=== PATIENT | female | born 1945 | race Caucasian/White ===

== ENCOUNTER → 2016-10-09 | Outpatient (CLI) | payer MEDICARE, OTHER | END | disposition home or self-care (01) | LOC: GMAB 10:50 | PROVIDERS: ATTEND Family Medicine | DX: E03.9 Hypothyroidism, unspecified (principal); D50.9 Iron deficiency anemia, unspecified ==

== ENCOUNTER → 2016-11-06 | Outpatient (CLI) | payer MEDICARE, OTHER | END | disposition home or self-care (01) | LOC: GMAB 16:11 | PROVIDERS: ATTEND Family Medicine | DX: M10.09 Idiopathic gout, multiple sites (principal) ==

== ENCOUNTER 2017-08-17 01:06 | Emergency (ER) | payer MEDICARE, OTHER ==
--- NOTE | 2017-08-17 01:18 | ED.PDOC ---
History of Present Illness - General Chief Complaint: GI Problem Stated Complaint: vomiting Time Seen by Provider: 08/17/17 01:10 Source: patient Exam Limitations: no limitations - History of Present Illness Initial Comments: Danay Lafleur 72 y/o female came to [facility] with nausea/vomiting for the last 3-4 days unable to take anything down;No diarrhea,fever ,chills.Had bowel movement .Tried eating crackers and water able to take it but several hours later threw it back up. Penny ate cheese but again vomited.Also has some discomfort LUQ but denies pain. Timing/Duration: constant - 4 days, getting worse, other Severity: moderate Improving Factors: nothing Worsening Factors: eating Associated Symptoms: nausea/vomiting Allergies/Adverse Reactions: Allergies Sulfa Drugs Allergy (Verified 11/04/14 19:49) Home Medications: Ambulatory Orders Rosuvastatin Calcium [Crestor] 10 mg PO DAILY 11/04/14 Thyroid [[place]ner Thyroid] 90 mg PO DAILY 11/04/14 Valsartan-Hydrochlorothiazide [Diovan Hct 320-25 mg] 1 tab PO DAILY 11/04/14 Bystolic 08/17/17 Metoclopramide Tab [Reglan Tab] 5 mg PO TID #30 tab 08/17/17 Nitrofurantoin Monohydrate Mac [Macrobid] 100 mg PO BID #10 cap 08/17/17 Ranitidine HCl 150 mg PO BID #30 tab 08/17/17 Review of Systems - Review of Systems Constitutional: States: no symptoms reported EENTM: States: no symptoms reported Respiratory: States: no symptoms reported Gastrointestinal/Abdominal: States: abdominal pain Genitourinary: States: no symptoms reported Musculoskeletal: States: no symptoms reported Skin: States: no symptoms reported Neurological: States: no symptoms reported All other Systems: Reviewed and Negative, No Change from Baseline Past Medical History (General) - Patient Medical History Hx Seizures: No Hx Stroke: No Hx Dementia: No Hx Asthma: No Hx of COPD: No Hx Cardiac Disorders: Yes Hx Congestive Heart Failure: No Hx Pacemaker: No Hx Hypertension: Yes Hx Thyroid Disease: Yes Hx Diabetes: No Hx Gastroesophageal Reflux: No Hx Renal Disease: No Hx Cancer: No Hx of HIV: No Hx Hepatitis C: No Hx MRSA: No Surgical History: other - colon resection diverticulitis developed colonic- vesiculo fistula,hysterectomy,CTS,colonoscopy - Vaccination History Hx Influenza Vaccination: Yes - Social History Hx Tobacco Use: Yes - social smoker in college yrs ago Hx Alcohol Use: No Hx Substance Use: No Hx Substance Use Treatment: No Hx Depression: No Hx Physical Abuse: No Hx Emotional Abuse: No Hx Suspected Abuse: No - Activities of Daily Living Patient Lives Alone: No - lives with family Family Medical History - Family History Mother Family History: No Known Living Status: Hx Family Hypertension: Yes - mom Hx Family Diabetes: Yes - mom Hx Family;Other: COPD-dad Physical Exam - Physical Exam General Appearance: Alert, No apparent distress Eye Exam: bilateral normal Ears, Nose, Throat: hearing grossly normal, normal ENT inspection, normal pharynx Neck: non-tender, full range of motion, supple Respiratory: chest non-tender, lungs clear, normal breath sounds Cardiovascular/Chest: normal peripheral pulses, regular rate, rhythm, no murmur Peripheral Pulses: radial,right: 2+, radial,left: 2+ Gastrointestinal/Abdominal: soft, no organomegaly, tenderness - LUQ no peritoneal signs Back Exam: no CVA tenderness, no vertebral tenderness Extremity: no pedal edema, no calf tenderness Neurologic: alert, normal mood/affect, oriented x 3 Skin Exam: normal color, warm/dry Progress - Progress Progress: 08/17/17 02:06 Last Vital Signs Temp 96.5 F L 08/17/17 01:16 Pulse 82 08/17/17 01:16 Resp 18 08/17/17 01:16 BP 173/94 08/17/17 01:16 Pulse Ox 98 08/17/17 01:16 - Results/Orders Results/Orders: Laboratory Tests 08/17/17 08/17/17 01:30 01:35 WBC 7.6 RBC 4.63 Hgb 13.7 Hct 40.1 MCV 86.6 MCH 29.6 MCHC 34.2 RDW 12.5 Plt Count 264 MPV 7.4 Absolute Neuts (auto) 5.80 Absolute Lymphs (auto) 1.10 Absolute Monos (auto) 0.50 Absolute Eos (auto) 0.10 Absolute Basos (auto) 0.00 Neutrophils % 76.9 Lymphocytes % 14.9 L Monocytes % 7.2 Eosinophils % 0.9 L Basophils % 0.1 PT 12.1 INR 1.070 PTT (SP) 29.7 Sodium 135 Potassium 3.3 L Chloride 100 L Carbon Dioxide 23 Anion Gap 15.3 BUN 13 Creatinine 0.55 L BUN/Creatinine Ratio 23.6 H Random Glucose 122 H Serum Osmolality 271.5 L Calcium 9.6 Magnesium 1.8 Total Bilirubin 1.0 Direct Bilirubin 0.2 Indirect Bilirubin 0.8 AST 18 ALT 12 Alkaline Phosphatase 67 Creatine Kinase 67 CK-MB (CK-2) 0.7 CK-MB (CK-2) % Not Reportable Troponin I < 0.02 Serum Total Protein 7.1 Albumin 4.1 Lipase 18 L Urine Color Yellow Urine Appearance Clear Urine pH 6.0 Ur Specific Olds 1.015 Urine Protein Negative Urine Glucose (UA) Negative Urine Ketones Negative Urine Blood Negative Urine Nitrite Negative Urine Bilirubin Negative Urine Urobilinogen 0.2 Ur Leukocyte Esterase Small H Urine RBC 0 Urine WBC 5-10 H Ur Epithelial Cells 1-3 Amorphous Sediment 1+ Urine Bacteria 2+ H No vomiting noted or nausea while in emergency room - EKG/XRAY/CT EKG: Sinus, nonspecific ST T wave Chg - anteroseptal leads Comments: Heart rate-70 XRAY: chest - no acute abnormalities CT Ordered: Yes - abd pelvis-no acute abnormalities Departure - Departure Clinical Impression: Vomiting Qualifiers: Vomiting type: unspecified Vomiting Intractability: unspecified Nausea presence : with nausea Qualified Code(s): R11.2 - Nausea with vomiting, unspecified Urinary tract infection Qualifiers: Urinary tract infection type: site unspecified Hematuria presence: without hematuria Qualified Code(s): N39.0 - Urinary tract infection, site not specified Time of Disposition: 03:25 Disposition: Discharge to Home or Self Care Condition: Fair Departure Forms: ED Discharge - Pt. Copy, Patient Portal Self Enrollment Instructions: DI for Vomiting -- Adult Diet: other - AVOID GREASY,SPICY,DAIRY FOODS UNTIL BETTER Referrals: Toney Nur MD [Primary Care Provider] - 1-2 Weeks Prescriptions: Metoclopramide Tab [Reglan Tab] 5 mg PO TID #30 tab Nitrofurantoin Monohydrate Mac [Macrobid] 100 mg PO BID #10 cap RX: Ranitidine HCl 150 mg PO BID #30 tab Home Medications: Ambulatory Orders Rosuvastatin Calcium [Crestor] 10 mg PO DAILY 11/04/14 Thyroid [[place]ardner Thyroid] 90 mg PO DAILY 11/04/14 Valsartan-Hydrochlorothiazide [Diovan Hct 320-25 mg] 1 tab PO DAILY 11/04/14 Bystolic 08/17/17 Metoclopramide Tab [Reglan Tab] 5 mg PO TID #30 tab 08/17/17 Nitrofurantoin Monohydrate Mac [Macrobid] 100 mg PO BID #10 cap 08/17/17 Ranitidine HCl 150 mg PO BID #30 tab 08/17/17 Additional Instructions: Follow up with primary Md in AM 08/17/2017
[2017-08-17] MEDS ORDERED: SODIUM CHLORIDE 0.9% 500ML 500 ML IVS ONE (01:31)
[2017-08-17] MEDS ORDERED: ONDANSETRON INJ 4 MG/2 ML VIAL IV ONE (01:31)
[2017-08-17] MEDS ORDERED: SODIUM CHLORIDE 0.9% 1000ML 1,000 ML ONE (01:40)
--- NOTE | 2017-08-17 02:57 | RAD ---
Procedure: XR CHEST 1 VIEW Exam Date: 08/17/2017 Ordering Provider: Tuan Meza Clinical Indication: vomiting Comparison: None Findings: Cardiomediastinal silhouette: Unremarkable Pulmonary vasculature : Unremarkable Aortic contour: Aortic calcification Focal lung consolidation: None Pleural effusion: None Pneumothorax: None Bones and soft tissues: Nonacute Impression: 1. No acute abnormalities in the chest. 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
--- NOTE | 2017-08-17 03:07 | CT ---
EXAM DESCRIPTION: CT ABDOMEN AND PELVIS WITH CONTRAST CLINICAL HISTORY: vomiting COMPARISON: 11/04/2014 TECHNIQUE: CT of the abdomen and pelvis are performed during IV bolus administration of iodinated contrast. DLP: 800.88 mGycm FINDINGS: Abdomen: The liver has normal size and density. No intrahepatic mass or biliary dilatation. No calcified gallstones. The spleen, pancreas, and adrenal glands are unremarkable. The kidneys have normal size and contour without evidence of solid mass or hydronephrosis. Aortoiliac atherosclerosis. The portal vein patent. The proximal visceral and renal arteries are patent. No free intraperitoneal air. The stomach and duodenum have normal course. Pelvis: Prior hysterectomy. Urinary bladder is unremarkable. No free pelvic fluid or lymphadenopathy. Scattered diverticula colon without pericolic fat stranding. Normal appendix. The visualized lung bases demonstrate minimal dependent atelectasis or scarring.. No destructive bone lesions identified. Degenerative spondylosis of the visualized thoracic and lumbar spine. IMPRESSION: 1. No acute inflammatory or obstructive abnormality identified. 2. Diverticulosis without evidence of diverticulitis. This exam was performed according to our departmental dose-optimization program, which includes automated exposure control, adjustment of the mA and/or kV according to patient size and/or use of iterative reconstruction technique. Electronically signed by: Yimi Simon 08/17/2017 3:06 AM [employer] SUPERINTENDENT
[2017-08-17] MEDS ORDERED: PANTOPRAZOLE SODIUM IV 40 MG VIAL IV ONE (03:22)
[2017-08-17] MEDS ORDERED: cefTRIAXone SODIUM 1 GM in SODIUM CHL 0.9% 50ML MIN-BAG+ 50 ML IVPB SCH (03:30)
[2017-08-17] MEDS ORDERED: SODIUM CHL 0.9% 50ML MIN-BAG+ 50 ML IVPB ONE (03:30)
[2017-08-17] MEDS ORDERED: cefTRIAXone SODIUM 1 GM VIAL ONE (03:30)
[2017-08-17 04:30] VITALS: BP 164/73; TEMP 96.8; O2SAT 95
== END 2017-08-17 04:34 | disposition home or self-care (01) ==
LOC: ER 01:06
DX: N39.0 Urinary tract infection, site not specified (principal); R11.2 Nausea with vomiting, unspecified; I10 Essential (primary) hypertension; E07.9 Disorder of thyroid, unspecified; Z87.891 Personal history of nicotine dependence
CPT/HCPCS: 36415; 71045; 74177; 80048; 80076; 81001; 82550; 82553; 83690; 84484; 85025; 85610; 85730; 87086; 93005; J0696; J2405; J7030; J7050

== ENCOUNTER → 2017-08-20 | Outpatient (CLI) | payer MEDICARE, OTHER | END | disposition home or self-care (01) | LOC: NM 09:30 | PROVIDERS: ATTEND Family Medicine | DX: R10.13 Epigastric pain (principal) | CPT/HCPCS: 78226; A9537 ==

== ENCOUNTER → 2017-08-26 | Outpatient (CLI) | payer MEDICARE, OTHER ==
--- NOTE | 2017-08-26 13:42 | US ---
EXAM DESCRIPTION: Carotid Duplex: ULTRASOUND. CLINICAL HISTORY: OCCLUSION AND STENOSIS OF BILATERAL CAROTID ARTERIES COMPARISON: None. TECHNIQUE: Transcutaneous scanning utilizing 2-dimensional and Doppler modes to evaluate the bilateral carotid systems and vertebral arteries. Percentage of diameter of stenosis or no stenosis recorded will be based upon NASCET criteria. FINDINGS: Peak systolic/end diastolic (CM-Sec) CCA Right 121/19 Left 213/68. ICA Right proximal 87/18, distal 91/27. Left proximal 180/61, mid 213/68. Vertebral Right 56/17 Left 57/13. ECA (PS Only) Right 87 left 98. ICA/CCA peak systolic ratio: Right 0.7 Left 1.9 ICA/CCA end diastolic ratio: Right 1.4 Left 2.9 Vertebral arteries: antegrade flow. Comments: Atherosclerotic calcification in the bilateral common carotid bulbs and proximal ICAs. Spectral broadening in the bilateral proximal ICAs. Color turbulent flow in the proximal left ICA. Color turbulent flow in the distal right ICA. Area stenosis left proximal ICA 82%; diameter stenosis 74%. Left common carotid bulb area stenosis 19%; diameter stenosis 31%. Right proximal ICA area stenosis 12 %. Diameter stenosis 22%.. IMPRESSION: 1. Doppler evaluation of the bilateral carotid systems and vertebral arteries shows critical stenosis greater than 70%, in the proximal left ICA. This stenosis is also seen on 2-D imaging by area and diameter measurements. This can be confirmed with MRA or CTA with IV contrast if clinically indicated. 2. Significant amount of plaque seen in the left common carotid bifurcation and proximal ICA. . Bilateral vertebral arteries showed antegrade-cephalad flow. CRITICAL COMMUNICATION: The critical value was discussed directly by phone with Dr. Cl Nur at approximately 1335 hours, on August 26, 2017. Electronically signed by: Dino Lackey MD 08/26/2017 1:41 PM [facility]
== END ==
LOC: US 09:27
PROVIDERS: ATTEND Family Medicine
DX: I65.23 Occlusion and stenosis of bilateral carotid arteries (principal)

== ENCOUNTER → 2017-09-01 | Outpatient (CLI) | payer MEDICARE, OTHER ==
--- NOTE | 2017-09-01 14:58 | CT ---
EXAM DESCRIPTION: CTA Head: Computed tomographic angiography. CLINICAL HISTORY: BILATERAL CAROTID ARTERY STENOSIS COMPARISON: CTA of the neck on the same visit. TECHNIQUE: Spiral -axial scans through the head and brain at 2.5 mm intervals, with nonionic IV contrast. Coronal and sagittal 2.0 mm reconstructions. Volume rendering 3-D reconstruction "pivot and tumble" images. No adverse reactions. Total Exam DLP: 494.77 mGy-cm. This exam was performed according to our departmental CT dose-optimization program which includes automated exposure control, adjustment of the mA and/or kV according to patient size and/or use of iterative reconstruction technique; to reduce radiation dose to as low as reasonably achievable (ALARA). FINDINGS: No abnormalities in the intracranial ICAs. Bilateral origination of the posterior cerebral arteries from the ICAs. Anterior communicating arteries. There is also a contribution to the left superior cerebellar artery from the intracranial left ICA. Proximal anterior and middle cerebral arteries are unremarkable with patent anterior communicating artery. No aneurysms, stenoses, vasculitis, or mass effect. Minimal atherosclerotic calcification in the carotid siphon. Bilateral distal vertebral arteries are codominant and join to form the basilar artery. Plaque arteries originating from the bilateral distal vertebral arteries. AICA vessels originating from the proximal basilar artery. Superior cerebellar arteries originating from the distal basilar artery. Also a rudimentary branch from the distal basilar artery to the right posterior cerebral artery. No aneurysms, no stenoses, no mass effect and no vasculitis. No mass-effect and no midline shift. Normal contrast enhancement. Vascular calcifications anterior; physiologic calcifications in the pineal gland and choroid plexus. No effacement or displacement of the ventricles, CSF spaces, or subdural spaces. Normal contrast enhancement. No extra axial fluid collection. No Gross abnormalities of the bony calvarium. IMPRESSION: 1. Anatomic variations in the anterior and posterior circulations seen on CTA of the head. 2. No aneurysms or stenoses. No vasculitis or mass effect. 3. No midline shift of the brain. Normal enhancement of the brain parenchyma. CSF spaces are unremarkable. 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
--- NOTE | 2017-09-01 15:28 | CT ---
EXAM DESCRIPTION: CTA Neck: Computed Tomography. CLINICAL HISTORY: BILATERAL CAROTID ARTERY STENOSIS COMPARISON: CTA head on the same visit. TECHNIQUE: Spiral, axial 1.25 mm scans through the neck soft tissues after bolus infusion of IV contrast. 3-D MIP coronal and sagittal 2.0 mm reconstructions. 3D volume rendering images rotation display . Percentage of stenosis or no stenosis recorded will be based upon NASCET criteria. Total Exam DLP: 494.77 mGy-cm. This exam was performed according to our departmental CT dose-optimization program which includes automated exposure control, adjustment of the mA and/or kV according to patient size and/or use of iterative reconstruction technique; to reduce radiation dose to as low as reasonably achievable (ALARA). FINDINGS: Standard origin aeration of the left common carotid artery from the aortic arch with minimal atherosclerosis. Calcification at the bifurcation. Partially calcified plaque on the internal wall of the proximal ICA resulting in 64% diameter stenosis. Proximal left ECA is unremarkable.. The remainder of the ICA shows no significant narrowing stenosis to the skull base. Usual origination of the right common carotid artery from the bifurcation of the right innominate artery. Minimal atherosclerotic calcification of the proximal right ICA with noncalcified plaque as well. Less than 10% diameter stenosis. Remainder of the right ICA is unremarkable through the skull base. No significant lesions in the proximal right ECA. No aneurysms or mass effect in the vessels. Typical origination of the bilateral vertebral arteries from the subclavian arteries. Calcification in the ostia of the right vertebral artery. No significant calcification or narrowing proximal, within the intervertebral foramen or from the C1 foramina to the foramen magnum. No aneurysms, stenoses, or mass effect. Diffuse spondylosis in the cervical spine from C2-3 down to T1-2. Most severe at C5-6. Foraminal narrowing due to uncinate spurs. Dextroscoliosis. Minimal mosaic densities in the bilateral included lung downs. No pneumothorax or abnormal nodules. Heterogeneous enhancement of the thyroid gland. Scattered lymph nodes from the neck base to the base of the skull. Short axis measurements are within the normal range. No significant effacement or displacement of the airway. IMPRESSION: 1. 64% diameter stenosis of the proximal left ICA by partially calcified plaque. No aneurysm or mass effect in the carotid vessels. Small diameter narrowing of the proximal right ICA. Vertebral arteries bilaterally are unremarkable. 2. Diffuse spondylosis of the cervical spine most severe at C5-6. Facet arthrosis and foraminal narrowing by uncinate spurs. 3. Probably age-related changes in the included lung downs. 4. No soft tissue neck masses. Electronically signed by: Dino Lackey MD 09/01/2017 3:27 PM [facility]
== END ==
LOC: CT 09:00
DX: I65.23 Occlusion and stenosis of bilateral carotid arteries (principal); M47.892 Other spondylosis, cervical region

== ENCOUNTER → 2018-07-07 | Outpatient (CLI) | payer MEDICARE, OTHER ==
--- NOTE | 2018-07-08 06:14 | US ---
Procedure: US CAROTID DOPPLER BILATERAL Exam Date: 07/07/2018 Ordering Provider: EUGENE GUERRA Clinical Indication: CAROTID STENOSIS Comparison: 08/26/2017 TECHNIQUE : Real-time cerebrovascular ultrasonography was obtained from sternal notch to the angle of the mandible bilaterally utilizing oswald scale, color flow and spectral Doppler analysis. Systolic velocity ratios were calculated for internal carotid artery to common carotid artery bilaterally. FINDINGS: RIGHT CAROTID BIFURCATION: Mild atherosclerotic plaque. Peak systolic and end-diastolic velocities in the right internal carotid artery are 107 and 32 cm/s. Internal carotid/common carotid ratio is 1.0. Right vertebral flow is antegrade. LEFT CAROTID BIFURCATION: Mild atherosclerotic plaque. Peak systolic and end-diastolic velocities in the left internal carotid artery are 124 and 43 cm/s. Internal carotid/common carotid ratio is 1.2. Left vertebral flow is antegrade. IMPRESSION: 1. Mild atherosclerotic plaque in each carotid bulb and ICA origin. 2. There is no significant stenosis (less than 50%) at either ICA origin. 3. Bilateral antegrade vertebral artery flow. Electronically signed by: Beka Gimenez MD 07/08/2018 6:12 AM [facility]
== END ==
LOC: US 11:07
DX: I65.23 Occlusion and stenosis of bilateral carotid arteries (principal)

== ENCOUNTER 2018-10-11 17:04 | Emergency (ER) | payer MEDICARE, OTHER ==
--- NOTE | 2018-10-11 17:34 | RAD ---
EXAM DESCRIPTION: Shoulder,Left 2 or More Views CLINICAL HISTORY: Left shoulder injury x one week ago COMPARISON: None. TECHNIQUE: 2 views left FINDINGS: Degenerative changes are observed in the acromioclavicular joint. Mild glenohumeral joint degenerative changes are observed. No fracturing is detected. IMPRESSION: Degenerative changes are observed in the acromio clavicular and glenohumeral joints. Electronically signed by: Armin Guerrero MD 10/11/2018 5:31 PM CDT
[2018-10-11] MEDS ORDERED: traMADol 37.5MG/APAP 325MG 1 EA TAB PO ONE (17:43)
--- NOTE | 2018-10-11 18:10 | ED.PDOC ---
History of Present Illness - General Chief Complaint: Upper Extremity Injury Stated Complaint: left shoulder injury, x1 week ago. Time Seen by Provider: 10/11/18 17:21 Source: patient Exam Limitations: no limitations - History of Present Illness Initial Comments: PT PRESENTS WITH 1 WEEK HISTORY OF L SHOULDER PAIN. PT CAN NOT RECALL ANY SPECIFIC INJURY, HOWEVER STATES SHE HAS BEEN LIFTING HEAVY BOXES BECAUSE SHE IS MOVING. Occurred: last week Pain - Upper Extremity: moderate: Shoulder, left Method of Injury: unknown Improving Factors: immobilization Worsening Factors: movement Allergies/Adverse Reactions: Allergies Sulfa Drugs Allergy (Verified 11/04/14 19:49) Home Medications: Ambulatory Orders Rosuvastatin Calcium [Crestor] 10 mg PO DAILY 11/04/14 Thyroid [[place] Thyroid] 90 mg PO DAILY 11/04/14 Valsartan-Hydrochlorothiazide [Diovan Hct 320-25 mg] 1 tab PO DAILY 11/04/14 Bystolic 08/17/17 Metoclopramide Tab [Reglan Tab] 5 mg PO TID #30 tab 08/17/17 Nitrofurantoin Monohydrate Mac [Macrobid] 100 mg PO BID #10 cap 08/17/17 Ranitidine HCl 150 mg PO BID #30 tab 08/17/17 Tramadol-Acetaminophen [Ultracet] 1 - 2 tab PO Q6HR PRN #30 tab 10/11/18 Review of Systems - Review of Systems Constitutional: Denies: fever Respiratory: Denies: cough, short of breath Cardiology: Denies: chest pain, palpitations Musculoskeletal: States: joint pain. Denies: joint swelling Past Medical History (General) - Patient Medical History Hx Seizures: No Hx Stroke: No Hx Dementia: No Hx Asthma: No Hx of COPD: No Hx Cardiac Disorders: No Hx Congestive Heart Failure: No Hx Pacemaker: No Hx Hypertension: Yes Hx Thyroid Disease: Yes Hx Diabetes: No Hx Gastroesophageal Reflux: Yes - HX gastric ulcers Hx Renal Disease: No Hx Cancer: No Hx of HIV: No Hx Hepatitis C: No Hx MRSA: No Surgical History: other - Vaccination History Hx Tetanus, Diphtheria Vaccination: Yes Hx Influenza Vaccination: No Hx Pneumococcal Vaccination: Yes - Social History Hx Tobacco Use: No Hx Alcohol Use: Yes - former Hx Substance Use: No Hx Substance Use Treatment: No Hx Depression: No Hx Physical Abuse: No Hx Emotional Abuse: No Hx Suspected Abuse: No - Female History Patient is a Female of Child Bearing Age (10 -59 yrs old): No Family Medical History - Family History Mother Family History: No Known Living Status: Hx Family Hypertension: Yes - mom Hx Family Diabetes: Yes - mom Hx Family;Other: COPD-dad Physical Exam - Physical Exam General Appearance: Alert, No apparent distress, Well Developed, Well Groomed, Well Hydrated Eyes, Ears, Nose, Throat Exam: normal ENT inspection Neck: full range of motion, supple Cardiovascular/Respiratory: no respiratory distress Back Exam: normal inspection, no vertebral tenderness Shoulder Exam: normal inspection, no evidence of injury, normal ROM, bone tenderness, soft tissue tenderness Elbow/Forearm Exam: normal inspection, non-tender, no evidence of injury, normal ROM Wrist Exam: normal inspection, non-tender, no evidence of injury, normal ROM Hand Exam: normal inspection, non-tender, no evidence of injury, normal ROM Neuro/Tendon: normal sensation, normal motor functions, normal tendon functions Mental Status: alert, oriented x 3 Skin Exam: normal color, warm/dry Progress - EKG/XRAY/CT XRAY: SHOULDER, NO ACUTE INJURY Departure - Departure Clinical Impression: Sprain and strain of shoulder and upper arm Time of Disposition: 18:07 Disposition: Discharge to Home or Self Care Condition: Good Departure Forms: ED Discharge - Pt. Copy, Patient Portal Self Enrollment Instructions: DI for Arm Pain, Shoulder Sprain (DC) Activity: no lifting, no pushing/pulling with affected limb Referrals: SARAH BHATT MD [Primary Care Provider] - 1-5 Days Timo Fraser MD [Active Staff] - 1-5 Days Prescriptions: Tramadol-Acetaminophen [Ultracet] 1 - 2 tab PO Q6HR PRN #30 tab PRN Reason: Pain Home Medications: Ambulatory Orders Rosuvastatin Calcium [Crestor] 10 mg PO DAILY 11/04/14 Thyroid [[place] Thyroid] 90 mg PO DAILY 11/04/14 Valsartan-Hydrochlorothiazide [Diovan Hct 320-25 mg] 1 tab PO DAILY 11/04/14 Bystolic 08/17/17 Metoclopramide Tab [Reglan Tab] 5 mg PO TID #30 tab 08/17/17 Nitrofurantoin Monohydrate Mac [Macrobid] 100 mg PO BID #10 cap 08/17/17 Ranitidine HCl 150 mg PO BID #30 tab 08/17/17 Tramadol-Acetaminophen [Ultracet] 1 - 2 tab PO Q6HR PRN #30 tab 10/11/18
[2018-10-11 18:26] VITALS: BP 177/103; TEMP 97; O2SAT 99
== END 2018-10-11 18:26 | disposition home or self-care (01) ==
LOC: ER 17:04
DX: S43.402A Unspecified sprain of left shoulder joint, initial encounter (principal); I10 Essential (primary) hypertension; E07.9 Disorder of thyroid, unspecified; Z88.2 Allergy status to sulfonamides; Z79.899 Other long term (current) drug therapy; X50.0XXA Overexertion from strenuous movement or load, initial encounter; Y92.9 Unspecified place or not applicable

== ENCOUNTER → 2018-10-14 | Outpatient (CLI) | payer MEDICARE, OTHER | LOC: GMAE 10:43 | PROVIDERS: ATTEND Family Medicine | DX: E03.9 Hypothyroidism, unspecified (principal) ==

== ENCOUNTER → 2019-07-21 | Outpatient (CLI) | payer MEDICARE, OTHER ==
--- NOTE | 2019-07-23 13:01 | RAD ---
EXAM DESCRIPTION: Pelvis: CR/DR/XR CLINICAL HISTORY: PAIN IN LEFT HIP COMPARISON: None Available. TECHNIQUE: One view AP Pelvis FINDINGS: No fracture dislocation. Millimeter decreased bone density. Narrowing of the superior right hip joint more than the left. Inferior marginal hypertrophic changes of both hip joints and minimal hypertrophy of the superior lateral acetabula bilaterally. Bilateral enthesophytes on the iliac crests and ischial tuberosities. Marginal spurs on the SI joints and the pubic symphysis. No fracture. No abnormal radiodense objects in the soft tissues or joint spaces. IMPRESSION: No fracture pelvis or dislocation of the hip joints. Overall bone density is mild to moderately decreased. Narrowing of the superior right joint compared to the left. Marginal spurs and enthesophytes. Evaluation for fracture is limited given the degree of bone density loss. If high clinical concern for acute fracture, correlation with MRI recommended given its greater sensitivity in the patient with significant bone density loss. If the patient cannot tolerate MRI imaging or more urgent imaging is required, CT could be performed, however it is less sensitive in the patient with severe bone density loss, when compared to MRI. Electronically signed by: Dino Lackey MD 07/23/2019 12:59 PM [facility]
--- NOTE | 2019-07-28 07:14 | RAD ---
EXAM DESCRIPTION: Knee,Right Complete CLINICAL HISTORY: 74 years Female, pain in right hip COMPARISON: July 21, 2019 FINDINGS: Four views of the right knee show a small right knee joint effusion. No acute fracture or malalignment. Advanced degenerative changes in the lateral and patellofemoral compartments including severe joint space narrowing and osteophyte formation. Less advanced degenerative changes in the medial compartment. Vascular calcifications. Additional benign soft tissue calcification posterior to the right knee, nonspecific. IMPRESSION: Tricompartmental degenerative changes, worse in the lateral and patellofemoral compartments. Small right knee joint effusion. Electronically signed by: Justin Carrillo MD 07/28/2019 7:13 AM [facility]
--- NOTE | 2019-07-28 07:44 | RAD ---
EXAM DESCRIPTION: Knee,Left Complete CLINICAL HISTORY: 74 years Female, PAIN IN LEFT KNEE COMPARISON: None. FINDINGS: Four views of the left knee show no acute fracture or malalignment. Small left knee joint effusion. Advanced lateral and patellofemoral joint space narrowing with osteophytes in all three knee joint compartments. Vascular calcifications. IMPRESSION: Tricompartmental degenerative changes, worse in the lateral and patellofemoral compartments. Left knee joint effusion. Electronically signed by: Justin Carrillo MD 07/28/2019 7:43 AM [facility]
== END ==
LOC: RAD 09:57
PROVIDERS: ATTEND Orthopaedic Surgery
DX: M17.0 Bilateral primary osteoarthritis of knee (principal); M25.462 Effusion, left knee; M85.88 Other specified disorders of bone density and structure, other site; M25.751 Osteophyte, right hip; M25.752 Osteophyte, left hip; M25.851 Other specified joint disorders, right hip; M25.852 Other specified joint disorders, left hip; R60.0 Localized edema

== ENCOUNTER → 2019-08-23 | Outpatient (CLI) | payer MEDICARE, OTHER ==
--- NOTE | 2019-08-24 12:46 | US ---
EXAM DESCRIPTION: Carotid Duplex: ULTRASOUND. CLINICAL HISTORY: 74 years Female CAROTID STENOSIS COMPARISON: Carotid duplex ultrasound July 2018. TECHNIQUE: Transcutaneous scanning utilizing oswald-scale and Doppler modes to evaluate the bilateral carotid systems and vertebral arteries. Percentage of diameter of stenosis or no stenosis recorded will be based upon NASCET criteria. FINDINGS: Peak systolic/end diastolic (CM-Sec) CCA Right 96/18 Left 103/24. ICA Right proximal 67/16, mid 62/20. Left proximal 97/27, mid 91/32. Vertebral Right 36/9 Left 44/13. ECA (PS Only) Right 103 left 137. ICA/CCA peak systolic ratio: Right 0.7 Left 0.9 ICA/CCA end diastolic ratio: Right 0.9 Left 1.1 Vertebral arteries: antegrade flow. Comments: Atherosclerotic calcification in the bilateral common carotid bifurcations and bilateral visualized ICA vessels. Spectral broadening in the mid and distal ICA vessels bilaterally. Proximal right ICA area stenosis 39% and diameter stenosis 28%. Left common carotid bulb area and diameter stenosis less than 20%. IMPRESSION: 1. Doppler evaluation of the bilateral carotid systems and vertebral arteries shows no hemodynamically significant stenoses. 2. Mild amount of plaque seen in the carotid arteries bilaterally. Bilateral vertebral arteries showed antegrade-cephalad flow. Electronically signed by: Dino Lackey MD 08/24/2019 12:44 PM [facility] [employer]
== END ==
LOC: US 09:28
PROVIDERS: ATTEND Orthopaedic Surgery
DX: Z01.818 Encounter for other preprocedural examination (principal); I65.23 Occlusion and stenosis of bilateral carotid arteries

== ENCOUNTER → 2019-09-10 | Outpatient (CLI) | payer MEDICARE, OTHER | LOC: GMAJS 16:54 | PROVIDERS: ATTEND Physician Assistant | DX: R30.0 Dysuria (principal) ==

== ENCOUNTER 2019-09-20 05:45 | Inpatient (IN) | payer MEDICARE, OTHER ==
[~2019-09-20 05:45] MED LIST: LACTATED RINGERS 1,000 ML ONE; SODIUM CHL 0.9% 100ML MINI-BAG 100 ML IVPB ONE; SODIUM CHLORIDE 0.9% 100ML 100 ML IVPB ONE; SODIUM CHLORIDE 0.9% 250ML 250 ML ONE; TRANEXAMIC ACID 1,000 MG/10 ML VIAL ONE; VANCOMYCIN HCL INJ 1,000 MG VIAL IVPB ONE; ceFAZolin SODIUM 1 GM VIAL ONE
[2019-09-20] MEDS ORDERED: HYDROmorphone HCL INJ 2 MG/ML VIAL ONE (06:21)
[2019-09-20] MEDS ORDERED: MIDAZOLAM INJ 2 MG/2 ML VIAL ONE (06:21)
[2019-09-20] MEDS ORDERED: MIDAZOLAM INJ 5 MG/5 ML VIAL ONE (06:40)
[2019-09-20] MEDS: TRANEXAMIC ACID 1,000 MG/10 ML VIAL ONE ×2 (06:50→09:45)
[2019-09-20] MEDS ORDERED: ROCURONIUM BROMIDE 10 MG/ML VIAL ONE (08:01)
[2019-09-20] MEDS: BUPIVACAINE 0.5% 30 ML VIAL INJ ONE ×2 (08:09→08:50)
[2019-09-20] MEDS: VANCOMYCIN HCL INJ 1,000 MG VIAL IVPB ONE ×2 (08:09→09:14)
[2019-09-20] MEDS: ceFAZolin SODIUM 1 GM VIAL ONE ×3 (08:09→09:14)
[2019-09-20] MEDS: BUPIVACAINE LIPOSOME 13.3 MG/ML VIAL INJ ONE ×2 (08:09→08:50)
[2019-09-20] MEDS ORDERED: ELECTROLYTE-A 1,000 ML IVS ONE (08:34)
[2019-09-20] MEDS ORDERED: SODIUM CHLORIDE 0.9% 10 ML VIAL ONE (08:40)
[2019-09-20] MEDS ORDERED: ZOLPIDEM TARTRATE 5 MG TAB PO PRN (09:31)
[2019-09-20] MEDS ORDERED: ALUMINUM & MAGNESIUM HYDROXIDE 30 ML UD PO PRN (09:31)
[2019-09-20] MEDS ORDERED: NALOXONE HCL INJ 0.4 MG/ML VIAL IV PRN (09:31)
[2019-09-20] MEDS ORDERED: BISACODYL SUPPOSITORY 10 MG PR PRN (09:31)
[2019-09-20] MEDS ORDERED: BENZOCAINE-MENTH LOZ (CEPACOL) 1 EA LOZ MT PRN (09:31)
[2019-09-20] MEDS ORDERED: MORPHINE SULFATE INJ 10 MG/ML VIAL IV PRN (09:31)
[2019-09-20] MEDS ORDERED: TRANEXAMIC ACID INJ 1,000 MG in SODIUM CHLORIDE 0.9% 100ML 100 ML IVPB ONE (09:31)
[2019-09-20] MEDS ORDERED: SODIUM CHLORIDE 0.9% (FLUSH) 10 ML SYG IV PRN (09:31)
[2019-09-20] MEDS ORDERED: MAGNESIUM HYDROXIDE 30 ML UD PO PRN (09:31)
[2019-09-20] MEDS ORDERED: MORPHINE SULFATE INJ 10 MG/ML VIAL IM PRN (09:31)
[2019-09-20] MEDS ORDERED: ONDANSETRON INJ 4 MG/2 ML VIAL IV PRN (09:31)
[2019-09-20] MEDS ORDERED: PROMETHAZINE HCL INJ 12.5 MG in SODIUM CHLORIDE 0.9% 50ML 50 ML IVPB PRN (09:31)
[2019-09-20] MEDS ORDERED: ACETAMINOPHEN 325 MG TAB PO PRN (09:31)
[2019-09-20] MEDS ORDERED: TEMAZEPAM 15 MG CAP PO PRN (09:31)
[2019-09-20] MEDS ORDERED: DEX 5% W/NACL 0.45% 1000ML 1,000 ML IVS PRN (09:31)
[2019-09-20] MEDS ORDERED: ACETAMINOPHEN 500 MG TAB PO PRN (09:31)
[2019-09-20] MEDS ORDERED: PROMETHAZINE HCL INJ 25 MG in SODIUM CHLORIDE 0.9% 50ML 50 ML IVPB PRN (09:31)
[2019-09-20] MEDS ORDERED: GLYCOPYRROLATE 0.2 MG/ML VIAL IV ONE (10:00)
[2019-09-20] MEDS ORDERED: SODIUM CHLORIDE 0.9% 50 ML VIAL INJ ONE (10:00)
[2019-09-20] MEDS ORDERED: IV SET AND CAP CHANGE INJ INJ SCH (10:00)
[2019-09-20] MEDS ORDERED: ePHEDrine SULF 50 MG/ML IV ONE (10:00)
[2019-09-20] MEDS ORDERED: raNITIdine HCL INJ 25 MG/ML VIAL IV ONE (10:00)
[2019-09-20] MEDS ORDERED: MAGNESIUM SULFATE INJ 1 GM/2 ML VIAL IVPB ONE (10:00)
[2019-09-20] MEDS ORDERED: MORPHINE PCA 1 MG/ML 100 ML BAG IVPB SCH (10:00)
[2019-09-20] MEDS ORDERED: PROPOFOL 200 MG/20 ML VIAL IV ONE (10:00)
[2019-09-20] MEDS ORDERED: LIDOCAINE 1% 10 ML VIAL INJ ONE (10:00)
[2019-09-20] MEDS ORDERED: PHENYLEPHRINE INJ 1ML 10 MG/ML VIAL IV ONE (10:00)
[2019-09-20] MEDS ORDERED: EPINEPHrine HCL AMP 1 MG/ML AMP IVPB ONE (10:00)
[2019-09-20] MEDS ORDERED: DEXAMETHASONE INJ 10 MG/ML VIAL IV ONE (10:00)
--- NOTE | 2019-09-20 13:18 | CONS ---
SUPERVISING PHYSICIAN: Mara Palumbo MD REASON FOR CONSULTATION: Medical management, medical consultation. HISTORY OF PRESENT ILLNESS: This is a 74-year-old female who has had ongoing right knee osteoarthritis. She has tried conservative measures which have not eliminated the pain. Therefore, today she underwent right total knee arthroplasty without any intraoperative complications. She returned to the Medical/Surgical Unit in stable condition. At the time of examination, the patient is not complaining of any pain, resting easily in no distress. PAST MEDICAL HISTORY: 1. Hypertension. 2. Diverticulosis. 3. Chronic pain, mainly of low back. 4. Hypothyroidism. PAST SURGICAL HISTORY: 1. Sigmoid colon resection. MEDICATIONS: 1. Amlodipine 5 mg p.o. daily. 2. Protonix 30 mg p.o. daily. 3. Crestor 10 mg p.o. daily. 4. Amour thyroid 90 mg p.o. daily. 5. Valsartan/HCTZ 320/25 oral daily. ALLERGIES: MACROBID, SULFA, TOPAMAX. FAMILY HISTORY: Reviewed and noncontributory. SOCIAL HISTORY: Nondrinker, nonsmoker, no illicit drugs. REVIEW OF SYSTEMS: Postoperatively, she is not having any complaints. Preoperatively, she did have some right knee pain. PHYSICAL EXAMINATION: VITAL SIGNS: Blood pressure 107/70. Heart rate 89. Respiratory rate 14. Temperature 98.0. Oxygen saturation 98% on 2 liters. GENERAL: Ms. Lafleur is a 74-year-old female in no active distress currently. NEUROLOGIC: The patient is alert. LUNGS: Clear to auscultation bilaterally. CARDIOVASCULAR: Regular rate and rhythm. Normal S1, S2. ABDOMEN: Soft. Positive bowel sounds. EXTREMITIES: Lower extremities with no edema. Right knee is wrapped in an Nikita. Ice pack is in place. Peripheral pulses are 2+. Capillary refill is less than 2 seconds. ASSESSMENT: 1. Right knee osteoarthritis status post right total knee arthroplasty, postoperative day #0. 2. Hypertension. 3. Hyperlipidemia. 4. Hypothyroidism. PLAN: The patient will be admitted to the Medical/Surgical Unit for postoperative pain control as well as physical therapy. The patient will be placed on anticoagulation 12 hours after surgery and complete a 12-day course of anticoagulation. We will continue to evaluate the patient's physical therapy needs while here to better plan for discharge. [facility][id number] [facility]
[2019-09-20] MEDS ORDERED: ceFAZolin SODIUM 2 GM in SODIUM CHL 0.9% 50ML MIN-BAG+ 50 ML IVPB SCH (16:00)
[2019-09-20] MEDS ORDERED: SODIUM CHL 0.9% 50ML MIN-BAG+ 50 ML IVPB ONE (16:48)
[2019-09-20] MEDS ORDERED: SODIUM CHLORIDE 0.9% 250ML 250 ML ONE (16:48)
[2019-09-20] MEDS ORDERED: VANCOMYCIN HCL INJ 1,000 MG VIAL IVPB ONE ×2 (16:49→17:19)
[2019-09-20] MEDS ORDERED: ceFAZolin SODIUM 1 GM VIAL ONE (16:49)
[2019-09-20] MEDS: CELECOXIB 100 MG CAP PO SCH (17:11)
--- NOTE | 2019-09-20 17:13 | RAD ---
EXAM DESCRIPTION: Knee,Right 1 or 2 Views CLINICAL HISTORY: TKA COMPARISON: 21 July 2019 TECHNIQUE: 2 views right FINDINGS: The exam demonstrates placement of a right total knee arthroplasty. Positioning is near-anatomic. Postoperative air is observed anteriorly. IMPRESSION: New right total knee arthroplasty. Electronically signed by: Armin Guerrero MD 09/20/2019 5:12 PM [facility]
--- NOTE | 2019-09-20 17:15 | RAD ---
EXAM DESCRIPTION: Fluoroscopy Up to 1Hr CLINICAL HISTORY: RIGHT TKA COMPARISON: None. TECHNIQUE: Fluoroscopy time is not given, one spot film. FINDINGS: The examination demonstrates placement of a right total knee arthroplasty. IMPRESSION: Right knee arthroplasty. Electronically signed by: Armin Guerrero MD 09/20/2019 5:14 PM [facility]
[2019-09-20] MEDS: VANCOMYCIN HCL INJ 1,000 MG in SODIUM CHLORIDE 0.9% 250ML 250 ML IVPB SCH (18:31)
[2019-09-20] MEDS ORDERED: ENOXAPARIN SODIUM 30 MG/0.3 ML SYG SUBCU ONE (20:14)
[2019-09-20] MEDS: DOCUSATE CALCIUM 240 MG CAP PO SCH (20:41)
[2019-09-20] MEDS: ENOXAPARIN SODIUM 30 MG/0.3 ML SYG SUBCU SCH (23:15)
[2019-09-21] MEDS: ceFAZolin SODIUM 2 GM in SODIUM CHLORIDE 0.9% 100ML 100 ML IVPB SCH ×2 (01:20→09:26)
[2019-09-21] MEDS ORDERED: ceFAZolin SODIUM 1 GM VIAL ONE ×3 (01:34→07:46)
[2019-09-21] MEDS ORDERED: SODIUM CHLORIDE 0.9% 100ML 0 ML IVPB ONE (01:34)
[2019-09-21] MEDS ORDERED: SODIUM CHLORIDE 0.9% 100ML 100 ML IVPB ONE ×2 (02:03→07:46)
[2019-09-21] MEDS ORDERED: SODIUM CHLORIDE 0.9% 250ML 0 ML ONE (04:20)
[2019-09-21] MEDS ORDERED: VANCOMYCIN HCL INJ 1,000 MG VIAL IVPB ONE ×2 (04:21→07:46)
[2019-09-21] MEDS: VANCOMYCIN HCL INJ 1,000 MG in SODIUM CHLORIDE 0.9% 250ML 250 ML IVPB SCH (05:47)
[2019-09-21] MEDS: HYDROcodone 5MG/APAP 325MG 1 EA TAB PO PRN ×3 (06:33→15:40)
[2019-09-21] MEDS: CELECOXIB 100 MG CAP PO SCH ×2 (07:30→16:49)
[2019-09-21] MEDS ORDERED: SODIUM CHLORIDE 0.9% 250ML 250 ML ONE (07:45)
[2019-09-21] MEDS: MAGNESIUM OXIDE 400 MG TAB PO SCH (09:28)
[2019-09-21] MEDS: traMADol HCL 50 MG TAB PO PRN ×2 (10:11→16:49)
[2019-09-21] MEDS: CYCLOBENZAPRINE HCL 10 MG TAB PO PRN ×2 (10:11→19:46)
--- NOTE | 2019-09-21 10:15 | PN ---
SUPERVISING PHYSICIAN: Mara Palumbo MD DATE: 09/21/19 SUBJECTIVE: The patient states she is feeling okay today. She tolerated the CPM device yesterday. She is about to get out of bed this morning. No complaints of nausea. She ate her dinner okay. OBJECTIVE: VITAL SIGNS: Blood pressure 152/77. Heart rate 71. Respiratory rate 18. Temperature 97.5. Oxygen saturation 97%. GENERAL: Ms. Lafleur is a 74-year-old female who is in no active distress currently. NEUROLOGIC: Alert and oriented. LUNGS: Clear to auscultation bilaterally. CARDIOVASCULAR: Regular rate and rhythm. Normal S1, S2. ABDOMEN: Soft. Positive bowel sounds. EXTREMITIES: Right lower extremity is still wrapped in an Nikita. Peripheral pulses 2+. Capillary refill is less than 2 seconds. No edema. Full sensation. LABORATORY: Hemoglobin 11.3, hematocrit 34.6. ASSESSMENT: 1. Right knee osteoarthritis status post right total knee arthroplasty, postoperative day #1. 2. Hypertension. 3. Hyperlipidemia. 4. Hypothyroidism. PLAN: We will continue pain control measures as well as physical therapy. Continue anticoagulation as well. Continue to evaluate physical therapy needs. She has requested inpatient rehab and social work is discussing her options regarding this. [facility][id number] [facility]
[2019-09-21] MEDS: ENOXAPARIN SODIUM 30 MG/0.3 ML SYG SUBCU SCH ×2 (12:42→22:32)
[2019-09-21] MEDS: OXYMETAZOLINE NASAL SPRAY 15 ML BTTL BNAS SCH (12:42)
[2019-09-21] MEDS: DOCUSATE CALCIUM 240 MG CAP PO SCH (19:46)
[2019-09-22] MEDS: HYDROcodone 5MG/APAP 325MG 1 EA TAB PO PRN ×3 (05:08→13:34)
[2019-09-22] MEDS: MAGNESIUM OXIDE 400 MG TAB PO SCH (08:01)
[2019-09-22] MEDS: CELECOXIB 100 MG CAP PO SCH (08:02)
[2019-09-22] MEDS: OXYMETAZOLINE NASAL SPRAY 15 ML BTTL BNAS SCH ×3 (08:02→08:14)
--- NOTE | 2019-09-22 08:24 | PN ---
DATE: 09/21/19 SUBJECTIVE: Ms. Lafleur is doing well today and has no significant pain. OBJECTIVE: Afebrile. Vital signs stable. Dressing is clean, dry and intact. ASSESSMENT: Status post total knee arthroplasty. PLAN: The plan at this point is to continue with weightbearing as tolerated. #[id number] [facility]
--- NOTE | 2019-09-22 08:26 | PN ---
DATE: 09/22/19 SUBJECTIVE: Ms. Lafleur is doing well. She is up to a chair and pain is well controlled this morning. OBJECTIVE: Afebrile. Vital signs stable. The wound is clean. There are no signs or symptoms of infection. ASSESSMENT: Status post total knee arthroplasty. PLAN: The plan at this point is to continue with weightbearing as tolerated as well as her CPM. #[id number] [facility]
--- NOTE | 2019-09-22 08:29 | OP ---
DATE OF PROCEDURE: 09/20/19 PREOPERATIVE DIAGNOSIS: 1. Osteoarthritis of the right knee. POSTOPERATIVE DIAGNOSIS: 1. Osteoarthritis of the right knee. PROCEDURE: 1. Right total knee arthroplasty. SURGEON: Timo Fraser MD. BRIDGE EXPERT: Dino Parrish CST, SA-C. ANESTHESIA: General anesthesia. COMPLICATIONS: None. FINDINGS: Severe arthritis of the knee with valgus deformity. INDICATION: Ms. Lafleur has a history of severe pain that has been getting progressively worse and has been causing dysfunction daily. Because of her ongoing pain, she has requested operative intervention. After discussing the risks, benefits and alternatives to that, the patient has given informed consent for total knee arthroplasty. PROCEDURE: The patient was brought to the Operating Room and placed in supine position. General anesthesia was induced and the patient's leg was sterilely prepped and draped. Following prepping and draping, the distal femur was exposed and using an intramedullary guide, the distal femoral cut was made. The appropriate sized cutting block was measured, pinned into place, and the anterior, posterior, and chamfer cuts were made. The ACL was transected and the tibia was subluxed. Both the medial and lateral menisci were removed. An intramedullary guide was used to make the proximal tibial cut. The appropriate sized base plate was placed and a trial polyethylene was placed. The trial femur was placed, the knee was reduced, and the knee was taken through a range of motion. The knee was stable in anterior, posterior, varus and valgus stress. The patella tracked anatomically without evidence of subluxation or dislocation. After trialing, the trial components were removed and the bony surfaces were thoroughly irrigated with saline. Following irrigation, the surfaces were dried and the final components were cemented into place. The excess cement was removed and the remaining cement was allowed to cure. The knee was again taken through a range of motion to confirm stability. The wound was then irrigated with saline and closure was performed using PDS to approximate the arthrotomy followed by closure of the subcutaneous tissues with a combination of running and interrupted Monocryl sutures. Sterile dressing was placed. The patient was awoken from anesthesia and taken to Recovery. COMPONENTS: [place] Triathlon knee, size 5 femur, size 5 tibia, 9 mm insert. POSTOPERATIVE PLAN: The patient will be weight-bearing as tolerated on postoperative day 1. #[id number] [facility]
[2019-09-22] MEDS ORDERED: SODIUM CHLORIDE 0.9% (FLUSH) 10 ML SYG IV SCH (09:00)
[2019-09-22 10:30] VITALS: BP 167/72; TEMP 96
[2019-09-22] MEDS: ENOXAPARIN SODIUM 30 MG/0.3 ML SYG SUBCU SCH (10:45)
[2019-09-22] MEDS ORDERED: RIVAROXABAN 10 MG TAB PO ONE (10:59)
[2019-09-22] MEDS: CYCLOBENZAPRINE HCL 10 MG TAB PO PRN (13:34)
--- NOTE | 2019-09-22 13:40 | DS ---
SUPERVISING PHYSICIAN: Mara Palumbo MD ADMISSION DIAGNOSIS: 1. Right knee osteoarthritis status post right total knee arthroplasty. 2. Hypertension. 3. Hyperlipidemia. 4. Hypothyroidism. DISCHARGE DIAGNOSIS: 1. Right knee osteoarthritis status post right total knee arthroplasty. 2. Hypertension. 3. Hyperlipidemia. 4. Hypothyroidism. HOSPITAL COURSE: This is a 74-year-old female who underwent elective right total knee arthroplasty without any intraoperative complications. While on the Medical/Surgical Unit, she participated in physical therapy and required some pain management as well. Anticoagulation was done with Lovenox. She has chosen to go to [place] for her rehab and therefore will be discharged today in stable condition. Anticoagulation with Xarelto has been ordered as well as pain control measures with [place]. Further physical therapy as per the rehab center in [place]. Diet is as tolerated. Followup with Dr. Fraser after discharge from rehab center. #[id number] [facility]
[2019-09-22 14:42] VITALS: O2SAT 98
[2019-09-23] MEDS ORDERED: MAGNESIUM HYDROXIDE 30 ML UD PO ONE (21:00)
[2019-09-23] MEDS ORDERED: BISACODYL SUPPOSITORY 10 MG PR ONE (21:00)
== END 2019-09-22 13:56 | DRG 470 ==
LOC: AMB 05:45 → MS 10:27
PROVIDERS: ADMIT Orthopaedic Surgery; ATTEND Orthopaedic Surgery
PROC: 3E0T3BZ Introduction of Anesthetic Agent into Peripheral Nerves and Plexi, Percutaneous Approach (ICD-10-PCS; 2019-09-20)
PROC: 3E0T33Z Introduction of Anti-inflammatory into Peripheral Nerves and Plexi, Percutaneous Approach (ICD-10-PCS; 2019-09-20)
PROC: 0SRC0J9 Replacement of Right Knee Joint with Synthetic Substitute, Cemented, Open Approach (ICD-10-PCS; principal; 2019-09-20 07:02)
DX: M17.11 Unilateral primary osteoarthritis, right knee (principal); I10 Essential (primary) hypertension; E03.9 Hypothyroidism, unspecified; G89.29 Other chronic pain; M54.5 Low back pain; E78.5 Hyperlipidemia, unspecified; Z90.49 Acquired absence of other specified parts of digestive tract; Z88.3 Allergy status to other anti-infective agents; Z88.2 Allergy status to sulfonamides; Z88.8 Allergy status to other drugs, medicaments and biological substances; Z79.899 Other long term (current) drug therapy